=== PATIENT | female | born 1960 | race Hispanic/Latino ===

== ENCOUNTER 2022-01-28 07:58 | Day surgery (SDC) | payer OTHER ==
[~2022-01-28 07:58] MED LIST: ASPI-1443 PO; ATOR80TA PO; CANA300T PO; FURO20TA6 PO; GABA-529 PO; INSU100C6 SQ; INSU100V12 SQ; METF-446 PO; METO25 PO
[2022-01-28 08:48] LABS: INR 1.01 (0.85-1.15)
[2022-01-28] MEDS ORDERED: LIDOCAINE HCL 1% 20 ML VIAL ONE (09:07)
[2022-01-28 12:23] LABS: TOTAL PROTEIN, SERUM 7.7 g/dL (6.0-8.3)
[2022-01-28 17:30] LABS: APPEARANCE BODY FLUID BLOODY (CLEAR); SPECIMENTYPE,BODY FLUID PLEURAL
[2022-01-28 17:31] LABS: BODY FLUID WBC 160 /cu. mm.; COLOR,BODY FLUID ORANGE (LT YELLOW); TOTAL VOLUME,BODY FLUID 600 mL
[2022-01-28 17:32] LABS: BODY FLUID RBC 30075 /cu. mm.
[2022-01-28 18:20] LABS: BF LYMPHOCYTE 62 %; BF MONOCYTE 2 %
== END 2022-01-28 12:10 | disposition home or self-care (01) ==
LOC: DAH 07:58
PROVIDERS: ATTEND Internal Medicine
DX: J90 Pleural effusion, not elsewhere classified (principal); E11.9 Type 2 diabetes mellitus without complications; I10 Essential (primary) hypertension; G47.33 Obstructive sleep apnea (adult) (pediatric); I25.10 Atherosclerotic heart disease of native coronary artery without angina pectoris; Z95.1 Presence of aortocoronary bypass graft; Z86.73 Personal history of transient ischemic attack (TIA), and cerebral infarction without residual deficits; Z98.890 Other specified postprocedural states; Z82.49 Family history of ischemic heart disease and other diseases of the circulatory system; Z83.3 Family history of diabetes mellitus; Z90.49 Acquired absence of other specified parts of digestive tract; Z79.01 Long term (current) use of anticoagulants; Z79.899 Other long term (current) drug therapy
CPT/HCPCS: 32555; 36415; 71045; 76604; 82948; 83615 ×2; 84155; 84157; 85610; 85730; 87071; 87116; 87205; 87206; 88112; 88305; 88341; 88342; 89051; A4215; A4216; A4221; A4222; A4223 ×3; A4606; A4663; A6402; C1729

== ENCOUNTER → 2022-04-09 | Outpatient (CLI) | payer OTHER | END | disposition home or self-care (01) | LOC: RAH 14:19 | PROVIDERS: ATTEND Family Medicine | DX: J44.9 Chronic obstructive pulmonary disease, unspecified (principal); I51.7 Cardiomegaly; J90 Pleural effusion, not elsewhere classified | CPT/HCPCS: 71250 ==

== ENCOUNTER 2024-03-27 07:27 | Day surgery (SDC) | payer MEDICARE, OTHER ==
[2024-03-23 13:47] LABS: HEMATOCRIT 26.1 % (36-48); MEAN CORPUSCULAR HGB CONC 29.9 g/dL (32.0-36.0); MEAN CORPUSCULAR VOLUME 93.5 fL (79-99); PLATELET COUNT (AUTO) 156 K/uL (130-400); RED BLOOD CELL COUNT(AUTO) 2.79 MIL/uL (4.00-5.50); RED CELL DISTRIBUTION WIDTH 17.5 % (11.0-15.5); WHITE BLOOD COUNT (AUTO) 4.9 K/uL (4.8-10.8)
[2024-03-23 13:58] VITALS: BP 124/50; PULSE 59; RESP 18
[2024-03-23 14:01] LABS: INR 0.96 (0.85-1.15); PROTHROMBIN TIME 11.4 SEC (9.6-11.6)
[2024-03-23 14:02] LABS: PARTIAL THROMBOPLASTIN TIME 25.2 SEC (26.3-35.5)
[2024-03-23 14:06] LABS: POTASSIUM 4.2 mmol/L (3.5-5.1)
[2024-03-27] VITALS (18 sets, daily range): BP systolic 109–140; BP diastolic 47–71; PULSE 52–58; RESP 13–18
[~2024-03-27] VITALS: Ht 162.6 cm; Wt 92.9 kg
[~2024-03-27 07:27] MED LIST changes: +BENZ-226 PO; +BUDE10.7 IH; +CALC667T8 PO; -CANA300T PO; +CARV3.12 PO; +CHOL200013 PO; +FERS325 PO; +FOLI1TAB85 PO; -FURO20TA6 PO; +FURO40TA5 PO; +HYDR-3421 PO; +HYDR50TA37 PO; -INSU100C6 SQ; +ISOS10TA8 PO; -METF-446 PO; -METO25 PO; +OMEG100033 PO; +PANT40TA54 PO; +POTA-364 PO; +PRED5TAB PO
[2024-03-27] MEDS ORDERED: CEFAZOLIN SODIUM 1 GM VIAL ONE (08:28)
[2024-03-27] MEDS: CEFAZOLIN SODIUM 2 GM VIAL ONE (08:29)
[2024-03-27] MEDS: 0.9% NACL 500ML IV.SOLN 500 ML IV ONE (08:30)
[2024-03-27] MEDS ORDERED: PROPOFOL 10 MG/ML 20ML VIAL IV ONE (08:52)
[2024-03-27] MEDS ORDERED: DEXAMETHASONE SOD PHOSPHATE 10MG/ML 1ML VIAL ONE (08:52)
[2024-03-27] MEDS ORDERED: LIDOCAINE PF 100MG/5ML (2%) SYRINGE 5ML ONE ×3 (08:52→08:56)
[2024-03-27] MEDS ORDERED: SUCCINYLCHOLINE CHLORIDE 20 MG/ML 10 ML VIAL ONE (08:52)
[2024-03-27] MEDS ORDERED: NEOSTIGMINE METHYLSULFATE 1MG/ML IV ONE (08:52)
[2024-03-27] MEDS ORDERED: GLYCOPYRROLATE 0.2 MG/ML 5 ML VIAL ONE (08:52)
[2024-03-27] MEDS ORDERED: FENTANYL CITRATE PF 50 MCG/1 ML 2ML VIAL ONE (08:53)
[2024-03-27] MEDS ORDERED: ROCURONIUM BROMIDE 10MG/1ML 5ML VL ONE (08:53)
[2024-03-27] MEDS ORDERED: LIDOCAINE HCL 1% 20 ML VIAL ONE (09:26)
[2024-03-27] MEDS ORDERED: BUPIVACAINE/PF 0.5% 30ML VIAL ONE (09:26)
[2024-03-27] MEDS: BUPIVACAINE/PF 0.5% 30ML VIAL INJ ONE (09:28)
[2024-03-27] MEDS ORDERED: ATROPINE 1MG SYG IVP ONE (09:30)
[2024-03-27] MEDS ORDERED: PROTAMINE SULFATE 10 MG/ML 25ML VIAL IV ONE (09:53)
[2024-03-27] MEDS: DEXTROSE 50%-WATER 50 ML DISP.SYRIN IV ONE (10:57)
== END 2024-03-27 12:30 | disposition home or self-care (01) ==
LOC: DAH 07:27
PROVIDERS: ATTEND Thoracic Surgery (Cardiothoracic Vascular Surgery)
DX: I12.0 Hypertensive chronic kidney disease with stage 5 chronic kidney disease or end stage renal disease (principal); E11.22 Type 2 diabetes mellitus with diabetic chronic kidney disease; N18.6 End stage renal disease; E78.5 Hyperlipidemia, unspecified; Z99.2 Dependence on renal dialysis; Z79.82 Long term (current) use of aspirin; Z90.49 Acquired absence of other specified parts of digestive tract; Z82.49 Family history of ischemic heart disease and other diseases of the circulatory system; Z83.3 Family history of diabetes mellitus; Z79.899 Other long term (current) drug therapy; Z90.710 Acquired absence of both cervix and uterus
CPT/HCPCS: 36415; 71045; 80048; 82948; 85027; 85610; 85730; 86850; 86900; 86901; 93005; J0330; J0461; J0690; J1100; J1644; J2001; J2704; J2710; J2720; J3010; J3490; J7030; J7040; J7070; A4215; A4221; A4222; A4223; A4649; A4663; A6207; A6260; C1713; G0168; J0665

== ENCOUNTER → 2025-05-06 | Outpatient (CLI) | payer OTHER ==
[~2025-05-06] MED LIST changes: +ATOR-428 PO; -ATOR80TA PO; -ISOS10TA8 PO; +ISOS10TA96 PO
--- NOTE | 2025-05-09 06:50 | HMCIMG ---
Gastric Emptying Scan. EXAM: Nuclear Medicine Gastric Emptying Scan. INDICATION: Abdominal distension. REFERENCE EXAMINATION: None TECHNIQUE: 2.1 mCi of Tc99m sulfur colloid with egg whites, 2 slices of bread/jam, 4 ounces of water. FINDINGS: Transit of radiopharmaceutical is seen from the stomach into the small bowel. Half gastric emptying achieved at 122 minutes of the study. IMPRESSION: Scintigraphy findings suggest normal gastric emptying. /[place]
== END | disposition home or self-care (01) ==
LOC: RAH 10:08
PROVIDERS: ATTEND Internal Medicine Gastroenterology
DX: R14.0 Abdominal distension (gaseous) (principal); R68.81 Early satiety
CPT/HCPCS: 78264; A9541